=== PATIENT | female | born 1990 | race Caucasian/White ===

== ENCOUNTER → 2023-08-18 12:56 | Outpatient (BNVA) | payer MEDICAID, SELFPAY | PROVIDERS: Family Provider Internal Medicine; Visit Provider Nurse Practitioner Family | DX: L70.0 Acne vulgaris (principal); D22.62 Melanocytic nevi of left upper limb, including shoulder; L81.4 Other melanin hyperpigmentation | CPT/HCPCS: 99203 ==

== ENCOUNTER → 2023-11-21 13:47 | Outpatient (BNVA) | payer OTHER, SELFPAY | PROVIDERS: Family Provider Internal Medicine; Visit Provider Nurse Practitioner Family | DX: L70.0 Acne vulgaris (principal); L81.4 Other melanin hyperpigmentation; D22.62 Melanocytic nevi of left upper limb, including shoulder | CPT/HCPCS: 99213 ==

== ENCOUNTER 2024-02-15 15:07 | Emergency (ER) | payer MEDICAID, SELFPAY ==
[2024-02-15 15:12] VITALS: BP 113/77; PULSE 88; RESP 18; TEMP 36.8; O2SAT 98; BMI 20.3
--- NOTE | 2024-02-15 15:18 | ECG_ITS ---
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 [email or web address]
[2024-02-15 15:28] VITALS: PULSE 88; O2SAT 98
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
[2024-02-15 15:42] VITALS: BP 111/81; PULSE 87; O2SAT 98
== END 2024-02-15 15:43 | disposition home or self-care (01) ==
PROVIDERS: Emergency Provider Emergency Medicine
DX: T75.4XXA Electrocution, initial encounter (principal); W86.8XXA Exposure to other electric current, initial encounter
CPT/HCPCS: 93005; 99283

== ENCOUNTER → 2024-03-20 14:52 | Outpatient (BNVA) | payer MEDICAID, SELFPAY | PROVIDERS: Visit Provider Nurse Practitioner Family | DX: L70.0 Acne vulgaris (principal); L81.4 Other melanin hyperpigmentation; D22.62 Melanocytic nevi of left upper limb, including shoulder | CPT/HCPCS: 99213 ==

== ENCOUNTER → 2024-12-14 10:12 | Outpatient (BNVA) | payer MEDICAID, SELFPAY | PROVIDERS: Visit Provider Nurse Practitioner Family | DX: L70.0 Acne vulgaris (principal); L81.4 Other melanin hyperpigmentation; D22.62 Melanocytic nevi of left upper limb, including shoulder | CPT/HCPCS: 99214 ==